=== PATIENT | female | born 1975 | race Caucasian/White ===

== ENCOUNTER 2020-08-30 09:17 | Emergency (ER) | payer BC ==
[~2020-08-30] VITALS: Ht 172.7 cm; Wt 108.9 kg
[2020-08-30] MEDS ORDERED: COZAAR 25 MG TA25 M1 PO (09:28)
[2020-08-30] MEDS ORDERED: AUGMENTIN 875-1 EACH PO (11:13)
[2020-08-30 12:13] VITALS: BP 146/72
== END 2020-08-30 12:14 | disposition home or self-care (01) ==
LOC: M.ERS 09:17
DX: I88.9 Nonspecific lymphadenitis, unspecified (principal); I10 Essential (primary) hypertension; J44.9 Chronic obstructive pulmonary disease, unspecified